=== PATIENT | male | born 1960 | race Caucasian/White ===

== ENCOUNTER 2018-01-04 09:29 | Day surgery (SDC) | payer BC ==
[~2018-01-04] VITALS: Ht 175.3 cm; Wt 88.9 kg
[~2018-01-04 09:29] MED LIST: ACHD5005 PO; ATOR20TA66 PO; ATOR80TA PO; CIPR-225 PO; CYCL10TA9 PO; FEXO-45 PO; FEXO-46 PO; FEXO60CA19; HYDR-3731 PO; METF500T5 PO; MTF500T PO; NAPR-243 PO; OXYC-12 PO
--- OUTSIDE RECORDS SUMMARY | 2018-01-04 09:33 | XMS REPORT ---
Author Author TERRANCE DE LA CRUZ Organization [facility], [place] Address [address] [place] [address] Care Team Providers Care Hand Sewer Name Role Phone TERRANCE DE LA CRUZ Unavailable PROBLEMS Type Condition ICD9-CM Code NAC38-QC Code Onset Dates Condition Status SNOMED Code Problem Lumbago 724.2 Active 030720992 ALLERGIES Substance Reaction Event Type Date Status Penicillin V Potassium Unknown Drug Allergy Jul, Active SOCIAL HISTORY No smoking Hx information available PLAN OF CARE Activity Details Follow Up prn Reason: VITAL SIGNS Height 69 in 2016-07-25 Weight 211.4 lbs 2016-07-25 Temperature 98.5 degrees Fahrenheit 2016-07-25 Heart Rate 88 bpm 2016-07-25 Respiratory Rate 20 2016-07-25 BMI 31.21 kg/m2 2016-07-25 Blood pressure systolic 132 mmHg 2016-07-25 Blood pressure diastolic 74 mmHg 2016-07-25 MEDICATIONS Medication Instructions Dosage Frequency Start Date End Date Duration Status Metformin HCl 500 MG Orally Twice a day 1 tablet with meals 12h Active Clindamycin HCl 300 MG Orally every 8 hrs 1 capsule 8h Jul,Jul 10 days Active Lipitor 20 MG Orally Once a day 1 tablet 24h Active Kimberlyn 180 MG Orally Once a day 1 tablet as needed 24h Active RESULTS No Results PROCEDURES Procedure Date Ordered Related Diagnosis Body Site Office Visit, Est Pt., Level 3 Jul 25, 2016 IMMUNIZATIONS No Known Immunizations
--- OUTSIDE RECORDS SUMMARY | 2018-01-04 09:35 | XMS REPORT | Continuity of Care Document ---
Author Author [facility] Organization [facility] Address Unknown Phone Unavailable Allergies Active Description Code Type Severity Reaction Onset Reported/Identified Relationship to Patient Clinical Status Yes Penicillins [id number] Drug Allergy Unknown N/A 01/28/2016 Medications There is no data. Problems Date Dx Coded Attending Type Code Diagnosis Diagnosed By 11/25/2010 Ot 211.3 BENIGN NEOPLASM LG BOWEL 11/25/2010 Ot 455.0 INT HEMORRHOID W/O COMPL 11/25/2010 Ot 455.3 EXT HEMORRHOID W/O COMPL 11/25/2010 Ot 562.11 DIVERTICULITIS COLON (W/O MENT OF HEMORR 11/25/2010 Ot 569.0 ANAL RECTAL POLYP 11/25/2010 Ot V76.51 SCREEN MAL NEOP-COLON 11/14/2011 Ot 577.0 ACUTE PANCREATITIS 11/14/2011 Ot 724.2 LUMBAGO 02/27/2015 VAN RENTERIA, KATIUSKA Ot 553.1 UMBILICAL HERNIA 03/13/2015 VAN RENTERIA, KATIUSKA Ot 553.1 03/13/2015 VAN RENTERIA, KATIUSKA Ot V72.63 03/13/2015 KATIUSKA ARAUJO MD Ot V74.8 06/10/2015 Ot 786.2 06/10/2015 DARLYN PATEL MD Ot 786.2 06/10/2015 KATIUSKA ARAUJO MD Ot 553.1 06/10/2015 KATIUSKA ARAUJO MD Ot V72.63 06/10/2015 KATIUSKA ARAUJO MD Ot V74.8 07/16/2015 DARLYN PATEL MD Ot R74.8 07/31/2015 DARLYN PATEL MD Ot R74.8 11/04/2015 CLAUDIA RENTERIA, JULI Davis Ot C61 11/18/2015 CLAUDIA RENTERIA, JULI Davis Ot C61 12/22/2015 Ot 786.2 COUGH 12/22/2015 DARLYN PATEL MD Ot 786.2 COUGH 12/22/2015 KATIUSKA ARAUJO MD Ot 553.1 UMBILICAL HERNIA 12/22/2015 KATIUSKA ARAUJO MD Ot V72.63 PRE-PROCEDURAL LABORATORY EXAMINATION 12/22/2015 KATIUSKA ARAUJO MD Ot V74.8 SCREEN-BACTERIAL DIS NEC 12/22/2015 DARLYN PATEL MD Ot R74.8 ABNORMAL LEVELS OF OTHER SERUM ENZYMES 12/22/2015 JULI TAYLOR MD Ot C61 MALIGNANT NEOPLASM OF PROSTATE 01/19/2016 Ot 786.2 COUGH 01/19/2016 DARLYN PATEL MD Ot 786.2 COUGH 01/19/2016 KATIUSKA ARAUJO MD Ot 553.1 UMBILICAL HERNIA 01/19/2016 KATIUSKA ARAUJO MD Ot V72.63 PRE-PROCEDURAL LABORATORY EXAMINATION 01/19/2016 KATIUSKA ARAUJO MD Ot V74.8 SCREEN-BACTERIAL DIS NEC 01/19/2016 DARLYN PATEL MD Ot R74.8 ABNORMAL LEVELS OF OTHER SERUM ENZYMES 01/19/2016 JULI TAYLOR MD Ot C61 MALIGNANT NEOPLASM OF PROSTATE 01/21/2016 CAROLINE BERGER MD Ot C61 MALIGNANT NEOPLASM OF PROSTATE 01/21/2016 CAROLINE BERGER MD Ot Z01.818 ENCOUNTER FOR OTHER PREPROCEDURAL EXAMIN 01/30/2016 CAROLINE BERGER MD Ot C61 MALIGNANT NEOPLASM OF PROSTATE 01/30/2016 CAROLINE BERGER MD Ot E11.9 TYPE 2 DIABETES MELLITUS WITHOUT COMPLIC 02/11/2016 CAROLINE BERGER MD, Ot C61 MALIGNANT NEOPLASM OF PROSTATE 02/11/2016 CAROLINE BERGER MD Ot Z01.818 ENCOUNTER FOR OTHER PREPROCEDURAL EXAMIN 07/19/2017 DARLYN PATEL MD Ot 786.2 COUGH 07/19/2017 KATIUSKA ARAUJO MD Ot 553.1 UMBILICAL HERNIA 07/19/2017 KATIUSKA ARAUJO MD Ot V72.63 PRE-PROCEDURAL LABORATORY EXAMINATION 07/19/2017 KATIUSKA ARAUJO MD Ot V74.8 SCREEN-BACTERIAL DIS NEC 07/19/2017 DARLYN PATEL MD Ot R74.8 ABNORMAL LEVELS OF OTHER SERUM ENZYMES 07/19/2017 JULI TAYLOR MD Ot C61 MALIGNANT NEOPLASM OF PROSTATE 10/11/2017 DARLYN PATEL MD Ot 786.2 COUGH 10/11/2017 KATIUSKA ARAUJO MD Ot 553.1 UMBILICAL HERNIA 10/11/2017 PELON ARAUJO MDKI Ot V72.63 PRE-PROCEDURAL LABORATORY EXAMINATION 10/11/2017 KATIUSKA ARAUJO MD Ot V74.8 SCREEN-BACTERIAL DIS NEC 10/11/2017 DARLYN PATEL MD Ot R74.8 ABNORMAL LEVELS OF OTHER SERUM ENZYMES 10/11/2017 JULI TAYLOR MD A Ot C61 MALIGNANT NEOPLASM OF PROSTATE 11/23/2017 DARLYN PATEL MD Ot 786.2 COUGH 11/23/2017 KATIUSKA ARAUJO MD Ot 553.1 UMBILICAL HERNIA 11/23/2017 KATIUSKA ARAUJO MD Ot V72.63 PRE-PROCEDURAL LABORATORY EXAMINATION 11/23/2017 KATIUSKA ARAUJO MD Ot V74.8 SCREEN-BACTERIAL DIS NEC 11/23/2017 DARLYN PATEL MD Ot R74.8 ABNORMAL LEVELS OF OTHER SERUM ENZYMES 11/23/2017 JULI TAYLOR MD Ot C61 MALIGNANT NEOPLASM OF PROSTATE 11/23/2017 DARLYN PATEL MD Ot 786.2 COUGH 11/23/2017 KATIUSKA ARAUJO MD Ot 553.1 UMBILICAL HERNIA 11/23/2017 KATIUSKA ARAUJO MD Ot V72.63 PRE-PROCEDURAL LABORATORY EXAMINATION 11/23/2017 KATIUSKA ARAUJO MD Ot V74.8 SCREEN-BACTERIAL DIS NEC 11/23/2017 DARLYN PATEL MD Ot R74.8 ABNORMAL LEVELS OF OTHER SERUM ENZYMES 11/23/2017 JULI TAYLOR MD Ot C61 MALIGNANT NEOPLASM OF PROSTATE 11/23/2017 DARLYN PATEL MD Ot 786.2 COUGH 11/23/2017 KATIUSKA ARAUJO MD Ot 553.1 UMBILICAL HERNIA 11/23/2017 KATIUSKA ARAUJO MD Ot V72.63 PRE-PROCEDURAL LABORATORY EXAMINATION 11/23/2017 PELON ARAUJO MDKI Ot V74.8 SCREEN-BACTERIAL DIS NEC 11/23/2017 DARLYN PATEL MD Ot R74.8 ABNORMAL LEVELS OF OTHER SERUM ENZYMES 11/23/2017 JULI TAYLOR MD A Ot C61 MALIGNANT NEOPLASM OF PROSTATE 11/23/2017 DARLYN PATEL MD Ot 786.2 COUGH 11/23/2017 KATIUSKA ARAUJO MD Ot 553.1 UMBILICAL HERNIA 11/23/2017 KATIUSKA ARAUJO MD Ot V72.63 PRE-PROCEDURAL LABORATORY EXAMINATION 11/23/2017 KATIUSKA ARAUJO MD Ot V74.8 SCREEN-BACTERIAL DIS NEC 11/23/2017 DARLYN PATEL MD Ot R74.8 ABNORMAL LEVELS OF OTHER SERUM ENZYMES 11/23/2017 JULI TAYLOR MD A Ot C61 MALIGNANT NEOPLASM OF PROSTATE 11/23/2017 DARLYN PATEL MD Ot 786.2 COUGH 11/23/2017 KATIUSKA ARAUJO MD Ot 553.1 UMBILICAL HERNIA 11/23/2017 KATIUSKA ARAUJO MD Ot V72.63 PRE-PROCEDURAL LABORATORY EXAMINATION 11/23/2017 KATIUSKA ARAUJO MD Ot V74.8 SCREEN-BACTERIAL DIS NEC 11/23/2017 DARLYN PATEL MD Ot R74.8 ABNORMAL LEVELS OF OTHER SERUM ENZYMES 11/23/2017 JULI TAYLOR MD A Ot C61 MALIGNANT NEOPLASM OF PROSTATE 11/24/2017 DARLYN PATEL MD Ot 786.2 COUGH 11/24/2017 KATIUSKA ARAUJO MD Ot 553.1 UMBILICAL HERNIA 11/24/2017 KATIUSKA ARAUJO MD Ot V72.63 PRE-PROCEDURAL LABORATORY EXAMINATION 11/24/2017 KATIUSKA ARAUJO MD Ot V74.8 SCREEN-BACTERIAL DIS NEC 11/24/2017 DARLYN PATEL MD Ot R74.8 ABNORMAL LEVELS OF OTHER SERUM ENZYMES 11/24/2017 CLAUDIA RENTERIA, JULI A Ot C61 MALIGNANT NEOPLASM OF PROSTATE 12/29/2017 KATIUSKA ARAUJO MD Ot Z01.818 ENCOUNTER FOR OTHER PREPROCEDURAL EXAMIN Procedures Code Description Performed By Performed On [id number] RESECTION OF PELVIS LYMPHATIC, PERC ENDO 01/28/2016 [id number] SUPPLEMENT BLADDER NECK WITH AUTOL SUB, 01/28/2016 [id number] EXCISION OF BILATERAL VAS DEFERENS, PERC 01/28/2016 [id number] RESECTION OF PROSTATE, PERCUTANEOUS ENDO 01/28/2016 1LL27KE RESECTION OF BILATERAL SEMINAL VESICLES, 01/28/2016 [id number] ROBOTIC ASSISTED PROCEDURE OF TRUNK, PER 01/28/2016 Results There is no data. Encounters ACCT No. Visit Date/Time Discharge Status Pt. Type Provider Facility Loc./Unit Complaint [id number] 12/28/2017 05:38:00 12/28/2017 23:59:59 CLS Outpatient KATIUSKA ARAUJO MD [facility] PREOP COLONOSCOPY [id number] 01/28/2016 06:15:00 01/30/2016 14:15:00 DIS Inpatient CAROLINE BERGER MD [facility] 4TH PROSTATE CANCER [id number] 01/21/2016 05:41:00 01/21/2016 13:45:00 DIS Outpatient CAROLINE BERGER MD [facility] PREOP PROSTATE CANCER [id number] 11/03/2015 10:56:00 11/03/2015 23:59:59 CLS Outpatient JULI TAYLOR MD [facility] CARD PROSTATE CA [id number] 07/14/2015 06:45:00 07/14/2015 23:59:59 CLS Outpatient DARLYN PATEL MD [facility] RAD ELEVATED LIVER ENZYMES [id number] 02/27/2015 09:52:00 02/27/2015 17:45:00 DIS Outpatient KATIUSKA ARAUJO MD [facility] SDC UMBILICAL HERNIA [id number] 02/24/2015 07:57:00 02/24/2015 23:59:59 CLS Outpatient KATIUSKA ARAUJO MD [facility] PREOP UMBILICAL HERNIA [id number] 03/14/2013 15:18:00 03/14/2013 23:59:59 CLS Outpatient DARLYN PATEL MD [facility] RT COUGH, SECOND HAND SMOKE EXPOSURE 20 YRS [id number] 01/04/2018 09:30:00 PEN Preadmit KATIUSKA ARAUJO MD [facility] ENDO SCREENING/HX POLYPS [id number] 11/14/2011 08:26:00 Document Registration [id number] 07/20/2011 13:57:00 Document Registration [id number] 11/25/2010 08:07:00 Document Registration [id number] 07/09/2017 10:40:00 07/09/2017 23:59:59 CLS Outpatient DIANE SANCHEZ DO [id number] 02/27/2015 09:52:27 ACT Document Registration
[2018-01-04] MEDS ORDERED: NS IV 500 ML 500 ML IV PRN (09:38)
[2018-01-04] MEDS ORDERED: NS IV 500 ML 500 ML ONE ×2 (09:43→10:10)
[2018-01-04] MEDS ORDERED: LIDOCAINE JELLY 2% (XYLOCAINE) 5 ML TUBE MM PRN (09:45)
[2018-01-04 10:00] VITALS: BP 125/86
[2018-01-04] MEDS ORDERED: MIDAZOLAM 2 MG/2 ML (VERSED) VIAL ONE ×4 (10:20→10:21)
[2018-01-04] MEDS ORDERED: LIDOCAINE JELLY 2% (XYLOCAINE) 5 ML TUBE ONE (10:20)
[2018-01-04] MEDS ORDERED: fentaNYL INJECTION 100 MCG/2 ML AMP ONE ×2 (10:20→10:47)
[2018-01-04] MEDS: MIDAZOLAM 2 MG/2 ML (VERSED) VIAL IVP PRN ×4 (10:29→10:45)
[2018-01-04] MEDS: fentaNYL INJECTION 100 MCG/2 ML AMP IVP PRN ×4 (10:30→10:49)
--- NOTE | 2018-01-04 10:33 | Conscious Sedation/ASA ---
Conscious Sedation Pre-Proced Time Reviewed: 10:00 ASA Class: 2 Airway Mallampati Classification: ([place] appropriate class) I. II. III, IV Lungs Heart ASA score ASA 1: a normal healthy patient ASA 2: a patient with a mild systemic disease (mid diabetes, controlled hypertension, obesity ASA 3: a patient with a severe systemic disease that limits activity (angina , COPD, prior Myocardial infarction) ASA 4: a patient with an incapacitating disease that is a constant threat to life (CHF, renal failure) ASA 5: a moribund patient not expected to survive 24 hrs. (ruptured aneurysm) ASA 6: a declared brain patient whose organs are being harvested. For emergent operations, add the letter E after the classification Grade 2 Sedation Plan: Analgesia, Amnesia, Plan communicated to team members, Discussed options with patient/fam, Discussed risks with patient/fam Note The patient is an appropriate candidate to undergo the planned procedure, sedation, and anesthesia. The patient immediately re-assessed prior to indication. KATIUSKA ARAUJO MD January 04, 2018 10:33
--- NOTE | 2018-01-04 10:34 | Progress Note-Pre Operative ---
Pre-Operative Progress Note H&P Reviewed The H&P was reviewed, patient examined and no changes noted. Date Seen by Provider: January 04, 2018 Time Seen by Provider: 10:00 Date H&P Reviewed: January 04, 2018 Time H&P Reviewed: 10:00 Pre-Operative Diagnosis: hx polyp KATIUSKA ARAUJO MD January 04, 2018 10:34
[2018-01-04] MEDS ORDERED: ONDANSETRON 4 MG/2 ML (SDV) Z0FRAN IV PRN (10:45)
[2018-01-04] MEDS ORDERED: ACETAMINOPHEN 325 MG TABLET/CAPLET (TYLENOL) PO PRN (10:45)
[2018-01-04] MEDS ORDERED: morphine INJ 10 MG/ML 1ML (SYR OR VIAL) IV PRN (10:45)
[2018-01-04] MEDS ORDERED: HYDROcodone/APAP 5 MG/325 MG (LORTAB) TAB PO PRN (10:45)
--- NOTE | 2018-01-04 11:22 | Progress Note-Post Operative ---
Post-Operative Progess Note Surgeon (s)/Dye Range Feeder (s) Surgeon KATIUSKA ARAUJO MD Dye Range Feeder: none Pre-Operative Diagnosis hx polyp Post-Operative Diagnosis mild chronic stage 1 ext and int hemorrhoids, small HP polyp rectum(2mm), moderate sigmoid diverticulosis. Procedure & Operative Findings Date of Procedure 01/04/18 Procedure Performed/Findings Colonoscopy with bx. Anesthesia Type CS Estimated Blood Loss Estimated blood loss (mL): minimal Specimens/Packing Specimens Removed rectal polyp KATIUSKA ARAUJO MD January 04, 2018 11:22 am
--- NOTE | 2018-01-04 11:23 | Discharge Inst-Surgical ---
D/C Lap Instructions-VAN Follow Up 5-10 years Activity as tolerated High Fiber Diet 25g or more per day Avoid Alcohol, Caffeine, Spicy Mogul and Acid foods. Drink 64 fluid oz or more of fluids per day. Symptoms to Report: Fever over 101 degree F, Nausea/Vomiting If any problems/questions: Contact your physician or go to Emergency Room KATIUSKA ARAUJO MD January 04, 2018 11:23 am
[2018-01-04 11:30] VITALS: BP 99/66
[2018-01-04 12:00] VITALS: BP 106/81
[2018-01-04 12:08] VITALS: BP 106/81
--- NOTE | 2018-01-04 16:24 | OPERATIVE REPORT ---
DATE OF SERVICE: 01/04/2018 ATTENDING PRIMARY CARE PHYSICIAN: Dr. Green. PREOPERATIVE DIAGNOSIS: History of colon polyp. POSTOPERATIVE DIAGNOSES: Mild chronic stage I external and internal hemorrhoids, small hyperplastic polyp of the rectum 2 mm in size, moderate sigmoid diverticulosis. PROCEDURE: Colonoscopy with biopsy. SURGEON: Dr. Araujo. ANESTHESIA: Conscious sedation. ESTIMATED BLOOD LOSS: Minimal. FINDINGS: Mild chronic stage I external and internal hemorrhoids, not actively edematous or inflamed and no bleeding. Normal sphincter tone was felt and there was a surgically absent prostate gland. The endoscope was then intubated to the anus and rectum gently insufflated. The endoscope was then advanced to the [facility] for a small hyperplastic polyp approximately 2 mm in size is identified. This was biopsied and destroyed using forceps and electrocautery with visualization of good hemostasis. Endoscope was then advanced to the sigmoid colon where a moderate sigmoid diverticulosis identified. There were no mucosal inflammatory changes to indicate any active diverticulitis. The endoscope was then advanced to the remainder of the descending, transverse and ascending colon to the cecum. These segments were normal. The endoscope was then slowly withdrawn while taking a second look and suctioning residual air with no additional findings. The patient tolerated the procedure well. We will recommend continued medical management with a high fiber diet with at least 30 grams of fiber per day as well as at least 64 fluid ounces of water daily. It appears that the polyp is a benign hyperplastic polyp and he does not have any family history of colon cancer, however, does have a personal history of prostate cancer. If this is a benign hyperplastic polyp, he may wait 10 years; however, because of his personal history of prostate cancer, he may also choose to proceed with a followup colonoscopy in 5 years. Job ID: [id number] DocumentID: [id number] Dictated Date: 01/04/2018 11:13:42 Weight Count Operator Date: 01/04/2018 16:24:04 Dictated By: KATIUSKA ARAUJO MD
== END 2018-01-04 12:15 | disposition home or self-care (01) ==
LOC: ENDO 09:29
PROVIDERS: ATTEND Surgery
DX: Z12.11 Encounter for screening for malignant neoplasm of colon (principal); K62.1 Rectal polyp; K64.0 First degree hemorrhoids; K57.30 Diverticulosis of large intestine without perforation or abscess without bleeding; Z86.010 Personal history of colon polyps; Z85.46 Personal history of malignant neoplasm of prostate; Z88.0 Allergy status to penicillin; Z79.84 Long term (current) use of oral hypoglycemic drugs; Z79.899 Other long term (current) drug therapy; Z80.3 Family history of malignant neoplasm of breast; Z80.0 Family history of malignant neoplasm of digestive organs
CPT/HCPCS: 88305

== ENCOUNTER → 2021-12-30 | Outpatient (CLI) | payer BC ==
[~2021-12-30] MED LIST changes: -FEXO-46 PO; +METF-397 PO; -METF500T5 PO; +NF-ALLE180 PO
[2021-12-30 09:52] LABS: ABSOLUTE RETIC # 124 10e9/uL (24-90); BASOPHILS # (AUTO) 0.1 10^3/uL (0.0-0.1); BASOPHILS % (AUTO) 2 % (0-10); EOSINOPHILS # (AUTO) 0.2 10^3/uL (0.0-0.3); EOSINOPHILS % (AUTO) 3 % (0-10); HEMATOCRIT 50 % (40-54); HEMOGLOBIN 16.5 g/dL (13.3-17.7); LYMPHOCYTES # (AUTO) 1.8 10^3/uL (1.0-4.0); LYMPHOCYTES % (AUTO) 23 % (12-44); MEAN CORPUSCULAR HEMOGLOBIN 29 pg (25-34); MEAN CORPUSCULAR HGB CONC 33 g/dL (32-36); MEAN CORPUSCULAR VOLUME 87 fL (80-99); MEAN PLATELET VOLUME 9.1 fL (9.0-12.2); MONOCYTES # (AUTO) 0.6 10^3/uL (0.0-1.0); MONOCYTES % (AUTO) 8 % (0-12); NEUTROPHILS # (AUTO) 4.9 10^3/uL (1.8-7.8); NEUTROPHILS % (AUTO) 64 % (42-75); PLATELET COUNT 547 10^3/uL (130-400); RETICULOCYTE % 2.16 % (0.50-2.40); WHITE BLOOD COUNT 7.7 10^3/uL (4.3-11.0)
[2021-12-30 10:23] LABS: BASOPHILS % (MANUAL) 1 %; EOSINOPHILS % (MANUAL) 1 %; LYMPHOCYTES % (MANUAL) 29 %; MONOCYTES % (MANUAL) 6 %; NEUTROPHILS % (MANUAL) 62 %; REACTIVE LYMPHOCYTES 1 %
[2021-12-30 10:24] LABS: PLATELET ESTIMATE INCREASED; RBC MORPH NORMAL
== END ==
LOC: LAB 09:22
PROVIDERS: ATTEND Internal Medicine
DX: D75.839 Thrombocytosis, unspecified (principal)
CPT/HCPCS: 36415; 85007; 85027; 85045; 85055

== ENCOUNTER → 2022-01-19 | Outpatient (CLI) | payer BC | LOC: LAB 09:03 | PROVIDERS: ATTEND Internal Medicine | DX: D75.839 Thrombocytosis, unspecified (principal) | CPT/HCPCS: 36415; 81219; 81270 ==